=== PATIENT | male | born 1955 | race Hispanic/Latino ===

== ENCOUNTER → 2017-09-12 | Outpatient (CLI) | payer MEDICARE ==
[~2017-09-12] MED LIST: FAMO40TA7 PO; FENO45CA2 PO; FOLI1TAB35 PO; LEVO88TA7 PO; SERT25TA5 PO; TAMS0.4C32 PO
== END | disposition home or self-care (01) ==
LOC: SHCH 08:19
PROVIDERS: ATTEND Internal Medicine Cardiovascular Disease
DX: I25.5 Ischemic cardiomyopathy (principal); I35.0 Nonrheumatic aortic (valve) stenosis
CPT/HCPCS: 93306